=== PATIENT | male | born 1970 | race Caucasian/White ===

== ENCOUNTER 2025-05-05 18:30 | Emergency (ER) | payer OTHER, SELFPAY ==
[2025-05-05 18:32] VITALS: BP 159/95; PULSE 76; RESP 14; TEMP 36.6; O2SAT 97; BMI 33.0
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
== END 2025-05-05 19:08 | disposition home or self-care (01) ==
PROVIDERS: Emergency Provider Emergency Medicine
DX: S16.1XXA Strain of muscle, fascia and tendon at neck level, initial encounter (principal); R51.9 Headache, unspecified; H57.11 Ocular pain, right eye; V89.2XXA Person injured in unspecified motor-vehicle accident, traffic, initial encounter
CPT/HCPCS: 99281